=== PATIENT | female | born 1985 | race Caucasian/White ===

== ENCOUNTER 2023-10-30 21:00 | Emergency (ER) | payer OTHER ==
[~2023-10-30] VITALS: Ht 157.5 cm; Wt 67.6 kg
[2023-10-30 21:22] VITALS: BP 143/82; PULSE 88; RESP 18; TEMP 98.3; O2SAT 99
[2023-10-31] MEDS ORDERED: AMOX-1230 PO (01:13)
[2023-10-31] MEDS ORDERED: OFLOS OP (01:13)
[2023-10-31 01:25] VITALS: BP 143/82; PULSE 88; RESP 18; TEMP 98.3; O2SAT 99
== END 2023-10-31 01:25 | disposition home or self-care (01) ==
LOC: MED 21:00
DX: J02.9 Acute pharyngitis, unspecified (principal); H10.9 Unspecified conjunctivitis; Z79.899 Other long term (current) drug therapy
CPT/HCPCS: 87081; 99283